=== PATIENT | male | born 1950 | race Caucasian/White ===

== ENCOUNTER 2016-11-08 08:46 | Emergency (ER) | payer BC ==
[~2016-11-08 08:46] MED LIST: ALEVE220 MG PO; ASAB PO; ATEN25 PO; ATEN50 PO; AVODART PO; BEN25 PO; CO Q 10 OR; CRESTOR5 MG PO; DIOVAN HC1 PO; DIOVAN HCT160 MG/25 PO; DIOVAN HCT320 MG/25 PO; FOLIC PO; IMDUR30 PO; KLOR-CON M2020 MEQ PO; LIPITOR10 PO; LIPITOR20 PO; NIASPAN500 PO; NITROSTAT0.4 MG SL; NORV5 PO; PLAVIX PO; PROTONIX PO; VOLT75 PO; [UNRECOGNIZED DRUG - CODE] TOP
[2016-11-08 09:31] LABS: BASOPHILS 0.2 %; BASOPHILS ABSOLUTE 0.01 10/3/uL (0.0-0.16); EOSINOPHILS 0 %; ER CBC TAT 0 Hrs 05 Mins; HEMATOCRIT 41.6 % (40.0-51.0); HEMOGLOBIN 14.5 g/dL (13.6-17.8); IMMATURE GRANULOCYTES 0.2 %; IMMATURE GRANULOCYTES ABSOLUTE 0.01 10/3/uL (0.0-0.11); LYMPHOCYTES 5.7 %; LYMPHOCYTES ABSOLUTE 0.36 10/3/uL (0.67-4.30); MEAN CORPUS HGB CONC 34.9 g/dL (32.0-36.0); MEAN CORPUSCULAR HEMOGLOB 31.7 pg (26.0-34.0); MEAN PLATELET VOLUME 8.3 fL (9.2-13.0); MONOCYTES 5.6 %; MONOCYTES ABSOLUTE 0.35 10/3/uL (0.21-1.20); NEUTROPHILS 88.3 %; NEUTROPHILS ABSOLUTE 5.55 10/3/uL (2.02-8.40); RED CELL COUNT 4.57 10/6/uL (4.7-6.1); WHITE BLOOD CELLS 6.3 10/3/uL (4.5-10.5)
[2016-11-08 09:33] LABS: MANUAL DIFF NO %; PLATELET COUNT 168 10/3/uL (150-400)
[2016-11-08 09:44] LABS: BUN (BLOOD UREA NITROGEN) 17 MG/DL (6-23); CHLORIDE, SERUM 103 MMOL/L (96-112); CO2 (CARBON DIOXIDE) 25 MMOL/L (24-34); CREATININE 1.11 MG/DL (0.70-1.30); GFR AFRICAN AMERICAN 81 ML/MIN (>=60); GFR NON AFRICAN AMERICAN 70 ML/MIN (>=60); GLUCOSE, SERUM 110 MG/DL (60-99); POTASSIUM, SERUM 3.5 MMOL/L (3.5-5.3); SODIUM, SERUM 138 MMOL/L (135-148)
== END 2016-11-08 11:46 | disposition home or self-care (01) ==
LOC: ER 08:46
PROVIDERS: Nurse Practitioner
DX: K04.7 Periapical abscess without sinus (principal); I25.2 Old myocardial infarction; I10 Essential (primary) hypertension; Z95.5 Presence of coronary angioplasty implant and graft; Z91.010 Allergy to peanuts; Z79.82 Long term (current) use of aspirin; Z79.899 Other long term (current) drug therapy
CPT/HCPCS: 80048; 85025; 87040; 99284; A9270-GY